=== PATIENT | female | born 1940 | race Caucasian/White ===

== ENCOUNTER 2016-06-03 17:27 | Inpatient (IN) ==
[2016-06-03 20:01] LABS: Basophils % 0.3 %; Hematocrit 43.5 % (35.3-44.9); Hemoglobin 14.8 g/dL (11.5-15.4); Immature Granulocytes % 0.5 % (0-4); Lymphocytes # 0.6 K/mcL (0.6-4.6); Lymphocytes % 8.5 %; Mean Corpuscular Hemoglobin 28.4 pg (28.0-33.3); Mean Corpuscular Volume 83.5 fL (83.0-100.0); Mean Platelet Volume 10.7 fL (9.4-12.4); Monocytes # 0.1 K/mcL (0.0-1.3); Monocytes % 1.3 %; Neutrophils # 6.7 K/mcL (1.6-8.9); Platelet Count 325 K/mcL (140-400); Red Blood Count 5.21 M/mcL (3.82-4.97); Red Cell Distribution Width 13.1 % (11.5-14.5); Segmented Neutrophils % 89.4 %
[2016-06-03 20:08] LABS: INR 1.2; Prothrombin Time 12.7 Seconds (9.4-12.1)
[2016-06-03 20:11] LABS: Activated Partial Thrombo Time 25.9 Seconds (26.0-36.0)
[2016-06-03 20:13] LABS: BUN/Creatinine Ratio 18 (6-26); Blood Urea Nitrogen 15 mg/dL (7-20); Calcium 9.6 mg/dL (8.6-10.8); Carbon Dioxide 24 mEq/L (19-29); Chloride 106 mEq/L (98-109); Glucose 154 mg/dL (70-99); Osmolality,Calculated 300 (280-300); Potassium 3.4 mEq/L (3.5-4.5); Sodium 143 mEq/L (136-145); eGFR For African Americans > 60 (> 60); eGFR For Non-African Americans > 60 (> 60)
--- NOTE | 2016-06-03 20:33 | Emergency Department Note ---
Disposition Clinical Impression: Chest pain, rule out acute myocardial infarction Disposition: Admitted As Inpatient Condition: Good Time of Disposition: 21:07 Chest Pain HPI - General Chief Complaint: ED Chest Pain Stated Complaint: chest pain Time Seen by Provider: 06/03/16 19:54 Source: patient Limitations: no limitations Vital Signs Reviewed: Yes Nursing Notes Reviewed: Yes - History of Present Illness HPI Narrative: 75-year-old female brought in by family for chest pain worsening over the past few days. Patient states that she has had intermittent pressure in the left chest which radiates into the left arm and is associated with nausea. There is no associated diaphoresis or palpitations or shortness of breath. No history of cardiac disease in the past. Patient has cardiac risk factors of hypertension, hyperlipidemia and her age. Never had a stress test or other cardiac workup. Denies recent trauma. Severity scale (1-10): 8 - Related Data Home Medications Medication Instructions Recorded Confirmed Famotidine [Heartburn Prevention] 20 mg PO HS 11/04/15 06/03/16 Lisinopril [Zestril] 40 mg PO DAILY 11/04/15 06/03/16 Alendronate Sodium [Alendronate 70 mg PO QWEEK 06/03/16 06/03/16 Sodium] Amlodipine [Norvasc] 5 mg PO DAILY 06/03/16 06/03/16 Fenofibrate Nanocrystallized 145 mg PO DAILY 06/03/16 06/03/16 [Fenofibrate] Lansoprazole [Lansoprazole] 30 mg PO BID 06/03/16 06/03/16 Meloxicam [Mobic] 7.5 mg PO DAILY 06/03/16 06/03/16 OxyCODONE/APAP 5/325 [Percocet 1 each PO BID PRN 06/03/16 06/03/16 5/325] Quetiapine Fumarate [Seroquel] 25 mg PO HS 06/03/16 06/03/16 Sucralfate [Sucralfate] 1 gm PO BID 06/03/16 06/03/16 Tizanidine HCl [Tizanidine HCl] 2 mg PO HS PRN 06/03/16 06/03/16 Allergies Allergy/AdvReac Type Severity Reaction Status Date / Time No Known Allergies Allergy Verified 11/04/15 18:32 All systems ED: reviewed and negative except as stated. Constitutional: Reports: weakness, weight change. Denies: fever, chills Cardiovascular: Reports: chest pain. Denies: palpitations, dyspnea on exertion , syncope Respiratory: Denies: cough, dyspnea, wheezes Gastrointestinal: Reports: nausea, vomiting. Denies: abdominal pain, diarrhea Genitourinary: Denies: urgency, dysuria, frequency Musculoskeletal: Denies: back pain, neck pain Integumentary: Denies: rash Neurological: Denies: headache, weakness, numbness, paresthesias Chest Pain PMH - Past Medical History Medical history: Reports: hyperlipidemia, hypertension, other Psychiatric history: Reports: no psych history - Social History Smoking Status: Never smoker Alcohol use: Reports: none Drug use: Reports: none Physical Exam General: Alert and in no acute distress Skin: Warm, dry, intact Head: Normocephalic and atraumatic Neck: Supple, trachea midline and no tenderness Cardiovascular: RRR, no murmur, normal perfusion Respiratory: CTAB, no wheezing, cough, or respiratory distress Musculoskeletal: Normal strength, no tenderness, swelling or deformity GI: Soft, nontender, nondistended. Bowel sounds present Neuro: A&O to person, place, time and situation. No focal deficits noted on exam. 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 - General Limitations: no limitations General appearance: alert Course Vital Signs Temperature 99.1 F 06/03/16 18:07 Pulse Rate 102 06/03/16 18:07 Respiratory Rate 18 06/03/16 18:07 Blood Pressure 173/79 06/03/16 18:07 O2 Sat by Pulse Oximetry 98 06/03/16 18:07 Temperature 97.8 F 06/03/16 22:40 Pulse Rate 69 06/03/16 22:40 Respiratory Rate 17 06/03/16 22:40 Blood Pressure 171/72 06/03/16 22:40 O2 Sat by Pulse Oximetry 96 06/03/16 22:40 Oxygen Delivery Oxygen Delivery Room Air Chest Pain - Medical Records Medical records reviewed: Yes I reviewed the patient's medical records. - Lab Data Lab results reviewed: Yes I reviewed the patient's lab results. Result diagrams: 06/03/16 19:48 06/03/16 19:48 Lab Results 06/03/16 06/03/16 06/03/16 Range/Units 19:48 19:48 19:48 WBC 7.4 (4.3-11.1) K/mcL RBC 5.21 H (3.82-4.97) M/mcL Hgb 14.8 (11.5-15.4) g/dL Hct 43.5 (35.3-44.9) % MCV 83.5 (83.0-100.0) fL MCH 28.4 (28.0-33.3) pg MCHC 34.0 (31.6-35.5) g/dL RDW 13.1 (11.5-14.5) % Plt Count 325 (140-400) K/mcL MPV 10.7 (9.4-12.4) fL Immature Gran % 0.5 (0-4) % Seg Neutrophils % 89.4 % Lymphocytes % 8.5 % Monocytes % 1.3 % Eosinophils % 0.0 % Basophils % 0.3 % Neutrophils # 6.7 (1.6-8.9) K/mcL Lymphocytes # 0.6 (0.6-4.6) K/mcL Monocytes # 0.1 (0.0-1.3) K/mcL Eosinophils # 0.0 (0.0-0.6) K/mcL Basophils # 0.0 (0.0-0.2) K/mcL PT 12.7 H (9.4-12.1) Seconds INR 1.2 APTT 25.9 L (26.0-36.0) Seconds Sodium 143 (136-145) mEq/L Potassium 3.4 L (3.5-4.5) mEq/L Chloride 106 (98-109) mEq/L Carbon Dioxide 24 (19-29) mEq/L BUN 15 (7-20) mg/dL Creatinine 0.82 (0.57-1.11) mg/dL Est GFR ( Amer) > 60 (> 60) Est GFR (Non-Af Amer) > 60 (> 60) BUN/Creatinine Ratio 18 (6-26) Glucose 154 H (70-99) mg/dL Calculated Osmolality 300 (280-300) Calcium 9.6 (8.6-10.8) mg/dL Troponin I (0-0.03) ng/mL TSH 0.455 (0.350-4.840) mcIU/mL 06/03/16 Range/Units 19:48 WBC (4.3-11.1) K/mcL RBC (3.82-4.97) M/mcL Hgb (11.5-15.4) g/dL Hct (35.3-44.9) % MCV (83.0-100.0) fL MCH (28.0-33.3) pg MCHC (31.6-35.5) g/dL RDW (11.5-14.5) % Plt Count (140-400) K/mcL MPV (9.4-12.4) fL Immature Gran % (0-4) % Seg Neutrophils % % Lymphocytes % % Monocytes % % Eosinophils % % Basophils % % Neutrophils # (1.6-8.9) K/mcL Lymphocytes # (0.6-4.6) K/mcL Monocytes # (0.0-1.3) K/mcL Eosinophils # (0.0-0.6) K/mcL Basophils # (0.0-0.2) K/mcL PT (9.4-12.1) Seconds INR APTT (26.0-36.0) Seconds Sodium (136-145) mEq/L Potassium (3.5-4.5) mEq/L Chloride (98-109) mEq/L Carbon Dioxide (19-29) mEq/L BUN (7-20) mg/dL Creatinine (0.57-1.11) mg/dL Est GFR ( Amer) (> 60) Est GFR (Non-Af Amer) (> 60) BUN/Creatinine Ratio (6-26) Glucose (70-99) mg/dL Calculated Osmolality (280-300) Calcium (8.6-10.8) mg/dL Troponin I 0.03 (0-0.03) ng/mL TSH (0.350-4.840) mcIU/mL - Radiology Data Radiology results reviewed: Yes I reviewed the patient's radiology results. - EKG Data EKG attestation: Yes I reviewed and interpreted this EKG. EKG results narrative: ECG - interpreted by ED physician. Rate 64, normal sinus rhythm, no STEMI, WI, QT intervals, and QRS within normal limits Heart Score - Score History: Moderately Suspicious EKG: Normal Age: Greater than 65 Risk Factors: 1-2 risk factors Troponin: Less than normal limit HEART Score Total: 4
[2016-06-03 20:36] LABS: Thyroid Stimulating Hormone 0.455 mcIU/mL (0.350-4.840)
[2016-06-03] MEDS ORDERED: Aspirin 81 MG TAB.CHEW PO ONE (21:06)
--- NOTE | 2016-06-04 00:14 | Internal Med History&Physical ---
<ChandraJavier - Last Filed: 06/04/16 01:23> Date of Encounter: 06/04/16 Time of Encounter: 00:11 Assessment and Plan (1) Chest pain Current visit: Yes Status: Acute Given presentation and history of GERD, etiology may be GI related but cannot fully rule out cardiac at this time Initial troponin of 0.03, will repeat x2 She does not need urgent evaluation with [facility] or inpatient stress test, but may benefit from scheduling it as an outpatient Patient does have risk factors such as HTN, HLD and family hx Will increase home GI prophylatic and anti-hypertensive medications Qualifiers: Qualified Code(s): R07.9 - Chest pain, unspecified (2) GERD (gastroesophageal reflux disease) Current visit: Yes Status: Chronic She does take Carafate, Lansoprazole, and Famotidine at home Will continue her Carafate and start on IV Protonix 40 mg BID Patient did state she had an EGD roughly a year ago that was normal Qualifiers: Qualified Code(s): K21.9 - Gastro-esophageal reflux disease without esophagitis (3) Hypertension Current visit: Yes Status: Chronic Blood pressures slightly elevated upon admission Will continue her home Lisinopril and increase Norvasc dose from 5 to 10 mg daily PRN Hydralazine IV for SBP > 180 for acute management Qualifiers: Qualified Code(s): I10 - Essential (primary) hypertension (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 Treadwell is a 75 year old female who presents to the emergency department with chest pain. She first noticed the pain last roughly an hour after eating a meal. She describes it as sharp and located directly in the middle of her chest over her sternum, worse with palpation. She has been feeling sick and states she had a "stomach bug" causing her to have nausea and vomiting over the past few days. She denied any blood in her vomit and had only 2 episodes of it, but states that she thought it may have been causing her pain. She also has been feeling somewhat short of breath and has a productive cough with yellow sputum. is at bedside and confirms that patient has been having more "respiratory symptoms" over the past year and he has noticed she oftens breathes fast and shallow. Patient denies any cardiac or pulmonary history and has never been worked up. She does have a history of reflux but is unsure if this feels similar to her usual episodes. Patient claims that despite her nausea and vomiting, she has been compliant with her medications. Currently at rest, she denies any chest pain, shortness of breath, palpitations , diaphoresis, nausea, fever, chills. Past Med Surg Social Fam HX - Past Medical History Medical history: hyperlipidemia, hypertension, other Psychiatric history: no psych history - Social History Smoking Status: Never smoker Smokeless Tobacco Status: No Alcohol use: none Drug use: none - Family History Sister Living Status: Still Living Hx Family Cancer: Yes (breast) Mother Hx Family Cancer: Yes Father Living Status: Hx Family Cardiac Disorders: Yes ([place]) Brother Hx Family Cardiac Disorders: Yes (4 brothers have from heart attacks) Internal Medicine - H&P: Meds Famotidine [Heartburn Prevention] 20 mg PO HS 11/04/15 [History] Lisinopril [Zestril] 40 mg PO DAILY 11/04/15 [History] Alendronate Sodium [Alendronate Sodium] 70 mg PO QWEEK 06/03/16 [History] Amlodipine [Norvasc] 5 mg PO DAILY 06/03/16 [History] Fenofibrate Nanocrystallized [Fenofibrate] 145 mg PO DAILY 06/03/16 [History] Lansoprazole [Lansoprazole] 30 mg PO BID 06/03/16 [History] Meloxicam [Mobic] 7.5 mg PO DAILY 06/03/16 [History] OxyCODONE/APAP 5/325 [Percocet 5/325] 1 each PO BID PRN 06/03/16 [History] Quetiapine Fumarate [Seroquel] 25 mg PO HS 06/03/16 [History] Sucralfate [Sucralfate] 1 gm PO BID 06/03/16 [History] Tizanidine HCl [Tizanidine HCl] 2 mg PO HS PRN 06/03/16 [History] Allergies No Known Allergies Allergy (Verified 11/04/15 18:32) All Systems PM: A 10-system review of systems was performed and is negative for pertinent findings except as documented above in the HPI. - Constitutional Constitutional: no chills, no fever(s), no night sweats - EENT Eyes: no change in vision, no discharge, no pain, no photophobia Ears: no ear discharge, no ear pain, no tinnitus Nose, mouth and throat: no dysphagia, no nasal discharge, no neck pain, no sore throat - Cardiovascular Cardiovascular ROS IM: chest pain, dyspnea, no diaphoresis, no lightheadedness, no palpitations, no syncope - Respiratory Respiratory: cough, excessive phlegm production, no dyspnea, no wheezing - Gastrointestinal Gastrointestinal: nausea, vomiting, no abdominal pain, no diarrhea, no hematemesis, no hematochezia, no melena - Genitourinary Genitourinary: no change in urinary stream, no dysuria, no flank pain, no hematuria - Musculoskeletal Musculoskeletal ROS IM: no numbness, no tingling - Integumentary Integumentary IM: no rash, no unusual bruising - Neurological Neurological ROS: no confusion, no convulsions, no focal weakness, no numbness, no tingling, no tremor(s) - Hematologic/Lymphatic Hematologic/Lymphatic: no easy bruising - Constitutional Vitals: Temp Pulse Resp BP Pulse Ox 97.8 F 69 17 171/72 96 06/03/16 22:40 06/03/16 22:40 06/03/16 22:40 06/03/16 22:40 06/03/16 22:40 General appearance: Present: cooperative, disheveled (does have history of Huntingtons), A&O X 3, pleasant, no acute distress, answers questions appropriately - Head Head exam: Present: atraumatic, normocephalic - Eye Eye exam: Present: PERRL, conjuntiva pink, sclera anicteric - Neck Neck exam general surgery: Present: supple, trachea midline. Absent: lymphadenopathy - Respiratory Respiratory exam: Present: chest wall tenderness (when palpating along sternum) , wheezes. Absent: accessory muscle use, rales, rhonchi - Cardiovascular Cardiovascular exam: Present: RRR, +S1, +S2. Absent: diastolic murmur, gallop, rubs, systolic murmur - GI/Abdominal GI/Abdominal exam: Present: normal bowel sounds, soft, no peritoneal signs. Absent: distended, guarding, tenderness - Extremities Exam Extremities exam: Present: warm, radial pulses palpable and symetrical. Absent : calf tenderness, cyanotic, pedal edema - Neurological Exam Neurological exam: Present: alert, oriented X3, no focal deficits. Absent: facial droop, speech deficit Additional comments: choreiform movements noted in all extremities - Skin Skin exam: Present: dry, intact Internal Med - H&P Results - Labs CBC & Chem 7: 06/03/16 19:48 06/03/16 19:48 <Nikko Donahue R - Last Filed: 06/04/16 05:06> Date of Encounter: 06/04/16 Internal Medicine - H&P: HPI History of present illness: Ms. Treadwell is a 75 year old female All Systems PM: A 10-system review of systems was performed and is negative for pertinent findings except as documented above in the HPI. - Constitutional Vitals: Temp Pulse Resp BP Pulse Ox 98.4 F 61 16 171/66 95 06/04/16 03:30 06/04/16 03:30 06/04/16 03:30 06/04/16 03:30 06/04/16 03:30 Internal Med - H&P Results - Labs CBC & Chem 7: 06/03/16 19:48 06/04/16 02:53 Labs: BMP 06/04/16 02:53 Sodium 141 Potassium 4.4 D Chloride 109 Carbon Dioxide 18 L BUN 14 Creatinine 0.79 Glucose 128 H Calcium 9.3 Cardiac Enzymes 06/04/16 Range/Units 02:53 Troponin I 0.03 (0-0.03) ng/mL - Attending Attestation I performed a history and physical examination of the patient and discussed his management with the Resident/Bilingual Middle School Teacher (Dr Chandra). I reviewed the residents note and agree with the documented findings and plan of care, with additions as below. 74-year-old female past medical history significant for Huntingtons disease, hypertension, hyperlipidemia, family h/o CAD and GERD presents with Lower sternal / epigastric pain. Intermittent, not associated with exertion. EKG sinus rhythm, no acute ST-T changes. CXR: No acute changes. O/E: Mild lower sternal tenderness. Lungs: CTA; cardiac: RRR. A/P: Lower sternal / epigastric pain: Possibly due to GERD versus cardiac. Initial troponins negative. Will treat with PPI, sucralfate. Pharmacological stress test. Lipid panel.
[2016-06-04] MEDS ORDERED: Naloxone 0.4 MG/ML INJ IVP PRN (01:05)
[2016-06-04] MEDS ORDERED: Ondansetron 4 MG/2 ML VIAL IVP PRN (01:05)
[2016-06-04] MEDS ORDERED: Acetaminophen 325 MG TABLET PO PRN (01:05)
[2016-06-04] MEDS ORDERED: *HR* OxyCODONE/APAP 5/325 TABLET PO PRN (01:07)
[2016-06-04] MEDS: Pantoprazole 40 MG VIAL IVP SCH ×2 (01:29→17:39)
[2016-06-04 03:51] LABS: BUN/Creatinine Ratio 18 (6-26); Blood Urea Nitrogen 14 mg/dL (7-20); Calcium 9.3 mg/dL (8.6-10.8); Carbon Dioxide 18 mEq/L (19-29); Chloride 109 mEq/L (98-109); Chol/HDL Ratio 4.7 (0-4.9); Cholesterol 173 mg/dL (< 200); Glucose 128 mg/dL (70-99); HDL Cholesterol 37 mg/dL (40-59); LDL Cholesterol,Calculated 115 mg/dL (0-99); Osmolality,Calculated 294 (280-300); Sodium 141 mEq/L (136-145); Triglycerides 107 mg/dL (< 150); eGFR For African Americans > 60 (> 60); eGFR For Non-African Americans > 60 (> 60)
[2016-06-04 04:09] LABS: Magnesium 2.3 mg/dL (1.6-2.6); Potassium 4.4 mEq/L (3.5-4.5)
[2016-06-04 04:10] LABS: Phosphorous 2.1 mg/dL (2.3-4.7)
[2016-06-04] MEDS: *HR* Heparin 5,000 UNIT/ML VIAL SQ SCH ×3 (06:13→17:48)
[2016-06-04] MEDS ORDERED: Regadenoson 0.4 MG/5 ML SYRINGE IVP ONE (06:18)
[2016-06-04] MEDS: Sucralfate 1 GM TABLET PO SCH ×2 (07:53→21:25)
[2016-06-04] MEDS: Lisinopril 20 MG TABLET PO SCH (07:53)
[2016-06-04] MEDS: Fenofibrate 54 MG TABLET PO SCH (07:54)
[2016-06-04] MEDS: amLODIPine 5 MG TABLET PO SCH (07:54)
--- NOTE | 2016-06-04 09:31 | Event Note ---
Date of Encounter: 06/04/16 Time of Encounter: 08:15 Patient seen and examined. On examination, patient had just returned from her stress test and was sitting upright in bed eating breakfast. Patient is stating she has a lengthy history of severe indigestion refractory to most medications. Her states that she has tried omeprazole, then famotidine , then lansoprazole, and Carafate. He states that these medications would work for approximately one month but then would stop. Patient stating she also has a recent history of H. pylori. In review of her chart, the only test that was performed [facility] was a modified barium swallow on which revealed trace/transient penetration of both thin and nectar consistency contrast without aspiration noted. She is followed outpatient by neurologist Dr. Alicea recently saw him on 03/06/16. Patient states that over the past several months that she has eaten smaller meals for dinner stating that her reflux become severe in the evening. She states that she eats several very small meals but states this does not seem to help her symptoms. Speech therapy brought on board. GI brought on board for possible EGD consideration at their discretion. Of note, patient was unable to get a stress test today due to her inability to stay still for the procedure. We will continue to trend her troponins although her physical examination and clinical picture more consistent with epigastric etiology. She did have a borderline elevated troponin at 0.04, will continue to trend. Suspicion low for acute coronary syndrome-we will recheck troponin at 12:30. Chest x-ray unremarkable. Patient denies shortness of breath. ITS Impressions Chest X-Ray 06/03/16 18:36 IMPRESSION: 1. No acute process. 2. Mildly enlarged cardiac silhouette. D/ / Hugo Cardoza MD / Hugo Cardoza MD Interpreting Provider: Hugo Cardoza MD
[2016-06-04 10:27] LABS: Bilirubin,Direct 0.5 mg/dL (0.0-0.5); Bilirubin,Indirect 0.5 mg/dL (0.0-1.2)
[2016-06-04 10:29] LABS: Albumin 3.6 g/dL (3.5-5.0); Albumin/Globulin Ratio 1.2 (1.1-2.2); Bilirubin,Direct 0.5 mg/dL (0.0-0.5); Bilirubin,Indirect 0.5 mg/dL (0.0-1.2); Total Protein 6.6 g/dL (6.0-8.3)
--- NOTE | 2016-06-04 12:21 | Gastroenterology Consult Note ---
<Luis Miguel Flores - Last Filed: 06/04/16 12:18> Date of Encounter: 06/04/16 Time of Encounter: 10:25 - Assessment and plan (1) Dysphagia Current Visit: Yes Status: Acute Assessment and plan: Plan for EGD tomorrow with possible dilation. Pt ate breakfast this AM. NPO at midnight. Qualifiers: Dysphagia type: unspecified Qualified Code(s): R13.10 - Dysphagia, unspecified (2) GERD (gastroesophageal reflux disease) Current Visit: Yes Status: Chronic Assessment and plan: Pt taking Carafate, lansoprazole, and famotidine at home. Continue PPI and Carafate. Limit NSAIDs. Plan for EGD tomorow to r/o esophagitis, gastritis, duodenitis, PUD, MW tear, or AVM. 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 Treadwell is a 75 year old female with PMHX of Pitts[place]'s chorea, HLD, HTN, and GERD who presented to the ED with chest pain, troponin 0.04 this a.m. Patient is taking Carafate, lansoprazole, and famotidine at home for her GERD. She reports a history of H. pylori "several years ago". She also reports dysphagia with solids, feeling like they get stuck in her throat. She reports over the past few months she has been eating smaller meals due to her reflux. She recently had a "stomach bug" which cause nausea and vomiting. No hematemesis noted. Currently she denies chest pain, shortness of breath palpitations, nausea, vomiting, fever, or chills. Procedures: EGD 03/27/[address] Hurt Colonoscopy 03/27/[address] Hurt NSAIDs: Meloxicam Anticoagulation: None Past Med Surg Social Fam HX - Past Medical History Medical history: hyperlipidemia, hypertension, other Psychiatric history: no psych history - Social History Smoking Status: Never smoker Smokeless Tobacco Status: No Alcohol use: none Drug use: none - Family History Sister Living Status: Still Living Hx Family Cancer: Yes (breast) Mother Hx Family Cancer: Yes Father Living Status: Hx Family Cardiac Disorders: Yes ([place]) Brother Hx Family Cardiac Disorders: Yes (4 brothers have from heart attacks) - Gastrointestinal Gastrointestinal: Present: as per HPI - Constitutional Constitutional: as per HPI - EENT Eyes: as per HPI Ears: Present: as per HPI Nose, mouth and throat: Present: as per HPI - Cardiovascular Cardiovascular ROS: Present: as per HPI - Respiratory Respiratory IM: Present: as per HPI - Genitourinary Genitourinary: Absent: change in color, Urinary frequency - Neurological ROS Neurological GI: Present: as per HPI - Hematologic/Lymphatic Hematologic/Lymphatic pediatric: Present: as per HPI - Musculoskeletal Musculoskeletal ROS GI: Present: as per HPI - Integumentary Integumentary GI: Present: as per HPI - Psychiatric ROS Psychiatric GI: Present: as per HPI - Endocrine Endocrine IM: Present: as per HPI - Constitutional Vitals: Temp Pulse Resp BP Pulse Ox 99.5 F 79 18 166/66 91 L 06/04/16 11:44 06/04/16 11:44 06/04/16 11:44 06/04/16 11:44 06/04/16 11:44 General appearance: Present: cooperative, A&O X 3, no acute distress, answers questions appropriately Exam: Involuntary movements due to Pitts[place]'s - Head Head exam: Present: atraumatic, normocephalic - Eye Eye exam: Present: normal appearance, sclera anicteric - ENT ENT exam: Present: mucous membranes moist - Neck Neck exam general surgery: Present: normal inspection, trachea midline - Respiratory Respiratory exam: Present: CTAB. Absent: rales, rhonchi - Cardiovascular Cardiovascular exam: Present: RRR, +S1, +S2 - GI/Abdominal GI/Abdominal exam: Present: normal bowel sounds, soft, tenderness (midepigastric ), no peritoneal signs. Absent: distended, firm, guarding - Rectal Rectal exam: Present: deferred - Extremities Exam Extremities exam: Present: warm - Neurological Exam Neurological exam: Present: no focal deficits - Psychiatric Psychiatric exam: Present: normal affect, normal mood - Skin Skin exam: Present: dry, intact, normal color, warm Results - Labs CBC & Chem 7: 06/03/16 19:48 06/04/16 02:53 Labs: Last Result Calcium 9.3 mg/dL (8.6-10.8) 06/04/16 02:53 Troponin I 0.04 ng/mL (0-0.03) H* 06/04/16 08:23 Triglycerides 107 mg/dL (< 150) 06/04/16 02:53 Entire Visit Hgb 14.8 g/dL (11.5-15.4) 06/03/16 19:48 Hct 43.5 % (35.3-44.9) 06/03/16 19:48 PT 12.7 Seconds (9.4-12.1) H 06/03/16 19:48 Total Bilirubin 1.0 mg/dL (0.2-1.2) 06/04/16 10:03 AST 27 Units/L (5-34) 06/04/16 10:03 ALT 28 Units/L (0-55) 06/04/16 10:03 Lipase 38 Units/L (8-78) 06/04/16 10:03 - ABG ABG results: PT/INR, D-dimer PT 12.7 Seconds (9.4-12.1) H 06/03/16 19:48 Consult Discharge Plan - Plan Referrals: Kirit Castanon, [facility] [Primary Care Provider] - <Kiran Charles - Last Filed: 06/04/16 18:14> Date of Encounter: 06/04/16 Time of Encounter: 18:00 - Time Spent With Patient Total time spent is greater than 50% in coordination of care (as documented) at patient's floor/unit and/or counseling patient: GI History of Present Illness - Data of Consult Requesting Physician: Tita Kendall - Consult Narrative History of present illness: Ms. Treadwell is a 75 year old female - Constitutional Vitals: Temp Pulse Resp BP Pulse Ox 98.4 F 71 18 145/66 92 L 06/04/16 15:25 06/04/16 15:25 06/04/16 15:25 06/04/16 15:25 06/04/16 15:25 Results - Labs CBC & Chem 7: 06/03/16 19:48 06/04/16 02:53 Labs: Last Result Calcium 9.3 mg/dL (8.6-10.8) 06/04/16 02:53 Troponin I 0.04 ng/mL (0-0.03) H* 06/04/16 08:23 Triglycerides 107 mg/dL (< 150) 06/04/16 02:53 Entire Visit Hgb 14.8 g/dL (11.5-15.4) 06/03/16 19:48 Hct 43.5 % (35.3-44.9) 06/03/16 19:48 PT 12.7 Seconds (9.4-12.1) H 06/03/16 19:48 Total Bilirubin 1.0 mg/dL (0.2-1.2) 06/04/16 10:03 AST 27 Units/L (5-34) 06/04/16 10:03 ALT 28 Units/L (0-55) 06/04/16 10:03 Lipase 38 Units/L (8-78) 06/04/16 10:03 - ABG ABG results: PT/INR, D-dimer PT 12.7 Seconds (9.4-12.1) H 06/03/16 19:48 - Attending Attestation I examined this patient and my medical decision-making was reviewed with the TRAVEL TRAILER COMPONENTS ASSEMBLER/PA/Advanced Practice Nurse/Resident Physician. I agree with the documented findings, disposition and treatment plan as described except to the extent set forth below.
--- NOTE | 2016-06-04 16:31 | Electrocardiograph Report ---
[address] [address] Test Date: 2016-06-03 Pat Name: Colette Treadwell Department: 102 Room: 3B Gender: F Legal Word Processor: : 1940 Requested By: Osvaldo Werner Order Number: [id number] Reading MD: Osvaldo Kaiser Measurements Intervals [place] Rate: 64 P: MT: 0 QRS: -2 QRSD: 89 T: -16 QT: 425 QTc: 435 Interpretive Statements SINUS RHYTHM BASELINE ARTIFACT Electronically Signed On 06-04-2016 16:30:05 EST by Osvaldo Kaiser
--- NOTE | 2016-06-04 16:41 | Electrocardiograph Report ---
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
--- NOTE | 2016-06-05 04:24 | Event Note ---
Date of Encounter: 06/05/16 Time of Encounter: 04:14 Was paged by nurse concerning patient's heart rate being in the 130-150's. They obtained an EKG which demonstrated AFib with rate in the 120's. She does not have any documented history of arrhythmias and is not on any rate control or blood thinners. I personally examined patient who was awake lying comfortably in bed. She did not complain of any chest pain, shortness of breath, nausea, diaphoresis, or lightheadedness. Heart was regular rate and rhythm and lungs are clear. Her blood pressure was within normal range. Since she was back in NSR with HR below 80, she does not need any medications for rate control at this point. However, prior to discharge she should be evaluated by primary team if she needs jail rate control or anticoagulation.
[2016-06-05 05:25] LABS: BUN/Creatinine Ratio 29 (6-26); Blood Urea Nitrogen 23 mg/dL (7-20); Calcium 9.1 mg/dL (8.6-10.8); Carbon Dioxide 18 mEq/L (19-29); Chloride 110 mEq/L (98-109); Glucose 112 mg/dL (70-99); Osmolality,Calculated 296 (280-300); Sodium 141 mEq/L (136-145); eGFR For African Americans > 60 (> 60); eGFR For Non-African Americans > 60 (> 60)
[2016-06-05 05:28] LABS: Potassium 3.5 mEq/L (3.5-4.5)
[2016-06-05] MEDS: Pantoprazole 40 MG VIAL IVP SCH (06:12)
[2016-06-05] MEDS: Fenofibrate 54 MG TABLET PO SCH (08:52)
[2016-06-05] MEDS: amLODIPine 5 MG TABLET PO SCH (08:52)
[2016-06-05] MEDS: Sucralfate 1 GM TABLET PO SCH (08:52)
[2016-06-05] MEDS: Lisinopril 20 MG TABLET PO SCH (08:52)
--- NOTE | 2016-06-05 12:19 | Electrocardiograph Report ---
[place] [address] Test Date: 2016-06-05 Pat Name: KELSEY ESTRELLA Department: 113 Room: 38 Gender: Female Eligibility Clerk: : 1940 Requested By: Tita Salas Order Number: [id number] Reading MD: Suzy Kaiser Measurements Intervals [place] Rate: 124 P: OR: 0 QRS: -15 QRSD: 84 T: 9 QT: 326 QTc: 400 Interpretive Statements ATRIAL FIBRILLATION WITH RAPID VENTRICULAR RESPONSE MODERATE VOLTAGE CRITERIA FOR LVH, CONSIDER NORMAL VARIANT MINIMAL ST DEPRESSION ABNORMAL RHYTHM ECG Electronically Signed On 06-05-2016 12:18:17 EST by Suzy Kaiser
--- NOTE | 2016-06-05 14:55 | Discharge Summary ---
Date of Encounter: 06/05/16 Time of Encounter: 12:30 - Discharge Diagnosis (1) New onset a-fib Status: Acute (2) Chest pain Status: Acute Qualifiers: Qualified Code(s): R07.9 - Chest pain, unspecified (3) DVT prophylaxis Status: Acute (4) Dysphagia Status: Acute Qualifiers: Dysphagia type: unspecified Qualified Code(s): R13.10 - Dysphagia, unspecified (5) Epigastric abdominal pain Status: Acute (6) GERD (gastroesophageal reflux disease) Status: Chronic Qualifiers: Esophagitis presence: esophagitis presence not specified Qualified Code(s) : K21.9 - Gastro-esophageal reflux disease without esophagitis (7) Jorge L chorea Status: Chronic (8) Hypertension Status: Chronic Qualifiers: Qualified Code(s): I10 - Essential (primary) hypertension - Discharge Medications Home Medications: Famotidine [Heartburn Prevention] 20 mg PO HS 11/04/15 [History] Lisinopril [Zestril] 40 mg PO DAILY 11/04/15 [History] Alendronate Sodium [Alendronate Sodium] 70 mg PO QWEEK 06/03/16 [History] Amlodipine [Norvasc] 5 mg PO DAILY 06/03/16 [History] Fenofibrate Nanocrystallized [Fenofibrate] 145 mg PO DAILY 06/03/16 [History] Lansoprazole [Lansoprazole] 30 mg PO BID 06/03/16 [History] Meloxicam [Mobic] 7.5 mg PO DAILY 06/03/16 [History] OxyCODONE/APAP 5/325 [Percocet 5/325] 1 each PO BID PRN 06/03/16 [History] Quetiapine Fumarate [Seroquel] 25 mg PO HS 06/03/16 [History] Sucralfate [Sucralfate] 1 gm PO BID 06/03/16 [History] Tizanidine HCl [Tizanidine HCl] 2 mg PO HS PRN 06/03/16 [History] Allergies/Adverse Reactions: Allergies No Known Allergies Allergy (Verified 11/04/15 18:32) Date of admission: 06/05/16 13:07 Primary care physician: Kirit Castanon CNP Consults: 06/05/16 14:30 Consult to Cardiology [CONS] Routine Consulting Provider: Cardiology Dorie Comment: Reason for Consult: new afib. afib RvR overnight. Also has periods of bradycardia so reluctant to initiate rate control. CHADSVASC 3. Please eval and advise, thanks Call Completed: Yes Discharging clinician: Tita Salas Anticipated date of discharge: 06/05/16 (if EGD unremarkable) - Patient Status Condition: Good - Discharge Instructions Follow Up With: Kirit Castanon, FINANCE BUSINESS MANAGER [Primary Care Provider] - 06/12/16 1:00 pm Hospital course: Ms. Treadwell is a 75 year old female - Time Spent with Patient Total time spent providing and/or coordinating discharge services: - Constitutional Vitals: Temp Pulse Resp BP Pulse Ox 97.9 F 54 16 171/66 96 06/05/16 11:03 06/05/16 11:03 06/05/16 11:03 06/05/16 11:03 06/05/16 11:03 General appearance: Present: cooperative, disheveled (does have history of [place]), A&O X 3, pleasant, no acute distress, answers questions appropriately
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
[2016-06-05] MEDS ORDERED: *HR* LORazepam 2 MG/ML VIAL IVP PRN (15:08)
[2016-06-05] MEDS ORDERED: tiZANidine 4 MG TABLET PO PRN (15:08)
--- NOTE | 2016-06-05 16:33 | Cardiology Consult Note ---
Date of Encounter: 06/05/16 Time of Encounter: 16:27 Assessment and Plan (1) New onset a-fib Current Visit: Yes Status: Acute Newly diagnosed afib. Reports being told she may have afib at out-pt provider appt. Currently NSR. Telemetry review shows minimum HR 50 bpm at 1048am. Maximum HR 170 bpm atrial fibrillation with RVR at 1451. Currently NSR with PAC and PVC, HR 75. Check TTE. CHADS VASc = 3. Indications for anticoagulation discussed with patient and family. Coumadin versus and NOACs discussed. Patient is agreeable to xarelto. Rx in to pharmacy. Start low dose metoprolol. She was instructed to hold if her heart rate was below 60 bpm. Okay to discharge from a cardiology standpoint once echocardiogram is completed. The patient is found to have significant valvular disease she will need to be switched to Coumadin therapy. Start Xarelto after EGD when cleared by sander setter. Recommend follow-up in the atrial fibrillation clinic/ [facility] clinic in 1-2 weeks. Appointment will be coordinated by [facility] [facility]. (2) Chest pain Current Visit: Yes Status: Acute Atypical chest pain. Muscle skeletal/ GI in nature. EKG showed no acute ST changes. Troponin 0.03, 0.04, 0.03. Mild troponin not diagnostic. Planning to undergo EGD today. Qualifiers: Chest pain type: unspecified Qualified Code(s): R07.9 - Chest pain, unspecified Discussion w patient/family: The assessment and plan as outlined above was discussed with the patient and/or family members who expressed understanding and agreement. All questions were answered. Thank you for involving us in the care of your patient. Please call with any questions. History of Present Illness Consult date: 06/05/16 Requesting physician: Tita Salas Consult reason: atrial fibrillation Chief complaint: chest pain History of present illness: Ms. Treadwell is a 75 year old female with a history of hypertension and Ralph Chorea who presents with midsternal chest pain starting last . She c/o nausea, vomiting, and fatigue. Also c/o cough. She felt like she had the flu. Afterwards she developed a constant ache in her mid-sternum that was non radiating. Pain is reproducible. Pain increased after eating. She is planning to undergo and EGD today. She was noted to develop atrial fibrillation with RVR. reports her being diagnosed with afib two weeks ago at an out-pt appointment. She denies palpitations. She converted back to NSR on her own. Past Med Surg Social Fam HX - Past Medical History Medical history: hyperlipidemia, hypertension, other Psychiatric history: no psych history - Social History Smoking Status: Never smoker Smokeless Tobacco Status: No Alcohol use: none Drug use: none - Family History Sister Living Status: Still Living Hx Family Cancer: Yes (breast) Mother Hx Family Cancer: Yes Father Living Status: Hx Family Cardiac Disorders: Yes ([place]) Brother Hx Family Cardiac Disorders: Yes (4 brothers have from heart attacks) Medications and Allergies Famotidine [Heartburn Prevention] 20 mg PO HS 11/04/15 [History] Lisinopril [Zestril] 40 mg PO DAILY 11/04/15 [History] Alendronate Sodium [Alendronate Sodium] 70 mg PO QWEEK 06/03/16 [History] Amlodipine [Norvasc] 5 mg PO DAILY 06/03/16 [History] Fenofibrate Nanocrystallized [Fenofibrate] 145 mg PO DAILY 06/03/16 [History] Lansoprazole [Lansoprazole] 30 mg PO BID 06/03/16 [History] Meloxicam [Mobic] 7.5 mg PO DAILY 06/03/16 [History] OxyCODONE/APAP 5/325 [Percocet 5/325] 1 each PO BID PRN 06/03/16 [History] Quetiapine Fumarate [Seroquel] 25 mg PO HS 06/03/16 [History] Sucralfate [Sucralfate] 1 gm PO BID 06/03/16 [History] Tizanidine HCl [Tizanidine HCl] 2 mg PO HS PRN 06/03/16 [History] Allergies No Known Allergies Allergy (Verified 11/04/15 18:32) All Systems Review: A 10-system review of systems was performed and is negative for pertinent findings except as documented above in the HPI. Physical Examination General: Conversant, No Apparent Distress HEENT: Atraumatic, Normocephaly, Mucus Membranes Moist Neck: No JVD, Normal carotid pulses Cardiac: Reg Rate and Rhythm, Normal S1 and S2, No Murmur Lungs: Normal Breath Sounds, No Wheeze, Rales, Rhonchi Neuro: Alert and responsive, No focal deficits noted, Other (tremors noted. ) Abdomen: Soft, Non-Tender Skin: No rashes noted on visualized skin Musculoskeletal: Other (reproducible chest wall pain) Extremities: No Clubbing, No Cyanosis, No Edema, Normal Pulses Results 06/03/16 19:48 06/05/16 03:55 Chest X-Ray 06/03/16 18:36 IMPRESSION: 1. No acute process. 2. Mildly enlarged cardiac silhouette. D/ / Hugo Cardoza MD / Hugo Cardoza MD Interpreting Provider: Hugo Cardoza MD Vital Signs Temp Pulse Resp BP Pulse Ox 06/05/16 11:03 97.9 F 54 16 171/66 96 06/05/16 08:00 93 L 06/05/16 07:35 98.6 F 59 16 158/83 93 L 06/05/16 04:28 97.3 F L 72 12 135/74 94 L 06/04/16 23:19 97.8 F 55 16 158/70 93 L 06/04/16 20:34 97.9 F 95 16 147/65 95 Intake and Output 06/05/16 06/05/16 06/05/16 07:59 15:59 23:59 Intake Total 600 / 600 Balance 600 / 600 Intake: Oral 600 / 600 Other: Weight 74.571 kg Patient Weight 06/05/16 23:59 Weight 74.571 kg - Imaging and Cardiology Echo: pending Consult Discharge Plan - Plan Referrals: Kirit Castanon, FELT WASHING MACHINE TENDER [Primary Care Provider] - 06/12/16 1:00 pm
[2016-06-05] MEDS ORDERED: *HR* FentaNYL (PF) 100 MCG/2 ML VIAL ONE (18:08)
[2016-06-05] MEDS ORDERED: *HR* Midazolam HCl 5 MG/5 ML VIAL IVP ONE (18:08)
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
[2016-06-05] MEDS ORDERED: 0.9 % Sodium Chloride 1,000 ML IVC SCH (18:15)
[2016-06-05] MEDS ORDERED: Simethicone 40 MG/0.6 ML MLS IR ONE (18:18)
[2016-06-05] MEDS ORDERED: Tetracaine/Benzocaine/Butamben 200MG/SPRAY (100SPY/BOT) MM ONE (18:18)
[2016-06-05] MEDS: *HR* FentaNYL (PF) 100 MCG/2 ML VIAL IVP PRN ×2 (18:20→18:22)
[2016-06-05] MEDS: *HR* Midazolam HCl 5 MG/5 ML VIAL IVP PRN ×2 (18:20→18:23)
--- NOTE | 2016-06-05 19:15 | ECHO - Doppler Report ---
Echocardiogram Name: Colette Treadwell Date of Study: 06/05/2016 Date: 1940 Ht: 60.0 in Medical Record#: [id number] Age: 75 Wt: 164.0 lb Gender: Female BSA: 1.72 Order #: [id number] Location: [facility] Room #: 3B Reading Physician: Luis Miguel Cuevas MD, [facility] Application Defense Manager: Radha Grider RDCS Ordering Physician: Tita Salas CNP Primary Physician: Kirit Castanon CNP Indications: AFIB, Bradycardia, SSS Impressions: Normal left ventricular systolic function, LVEF 65%. Mild-moderate concentric left ventricular hypertrophy. Mild left ventricular diastolic dysfunction. Normal right ventricular size and function. Mildly dilated left atrium. Mild aortic regurgitation. No evidence of pulmonary hypertension. Left Ventricular Wall Motion: Rest Echo Findings All wall segments showed normal motion. Findings: Study Quality * Technically adequate exam. ECG Findings * Sinus bradycardia. Left Ventricle * Normal left ventricular systolic function, LVEF 65%. * Normal LV chamber size. * Mild-moderate concentric left ventricular hypertrophy. * Mild left ventricular diastolic dysfunction. Right Ventricle * Normal right ventricular size and function. Left Atrium * Mildly dilated left atrium. Right Atrium * Normal right atrial size. Aorta * Normally sized aortic root. Pericardium * There is no pericardial effusion present. IVC * Normal IVC dimensions and inspiratory collapse. Aortic Valve * Trileaflet aortic valve. * Mildly sclerotic aortic valve leaflets. * No aortic stenosis. * Mild aortic regurgitation. Mitral Valve * Normal mitral valve structure. * No mitral stenosis. * Trace mitral regurgitation. Tricuspid Valve * Tricuspid valve not well visualized. * No tricuspid stenosis. * Trace tricuspid regurgitation. * No evidence of pulmonary hypertension. Pulmonic Valve * Pulmonic valve not well visualized. * No pulmonic stenosis. * No pulmonic regurgitation. History Hypertension Hypercholesteremia Family History of CAD Measurements: BP: 171/ 66 2D Normal Values RVIDd: 2.85 cm IVSd: 1.38 cm 0.6 - 1.0 cm LVIDd: 4.65 cm 3.7 - 5.6 cm LVPWd: 1.33 cm 0.6 - 1.1 cm LVIDs: 2.34 cm 1.5 - 3.6 cm AO: 3.00 cm < 4.0 cm %FS: 49.70 cm >25 % LA volume: 60 Mitral Valve Peak E:.66 m/sec Peak A:.78 m/sec E/A Ratio:0.8 Aortic Valve AI pressure Half-time: 681.00 msec Tricuspid Valve TV Regurg Peak Grad: 27.00mmHg TV Regurg Peak Donis: 2.61m/sec Updated by Luis Miguel Cuevas MD, [facility] on 06/05/2016 7:05:44 PM electronically signed on 06/05/2016 7:10:29 PM with status of Final Wall Motion Lind: 1=Normal, 2=Hypokinesis, 3=Akinesis, 4=Dyskinesis, 5=Aneurysmal, 6=Hyperkinetic, X=Not Visualized (Blank)=Missing
[2016-06-05 19:50] VITALS: BP 158/69
== END 2016-06-05 19:42 | disposition home or self-care (01) | DRG 392 ==
LOC: 3BNU 17:27 → EMEROO 17:27 → 3BNU 21:55
PROVIDERS: ADMIT Internal Medicine; ATTEND Nurse Practitioner Family
PROC: ENDOORB (2016-06-05 13:00)

== ENCOUNTER 2019-05-18 17:23 | Inpatient (IN) ==
[2019-05-18] MEDS ORDERED: Isovue-370 500 ML BOTTLE IVP ONE (19:12)
[2019-05-18 19:14] LABS: Basophils % 0.5 %; Eosinophils # 0.1 K/mcL (0.0-0.6); Hematocrit 37.3 % (35.3-44.9); Hemoglobin 11.7 g/dL (11.5-15.4); Immature Granulocytes % 0.6 % (0-4); Lymphocytes # 1.1 K/mcL (0.6-4.6); Lymphocytes % 16.5 %; Mean Corpuscular HGB Conc 31.4 g/dL (31.6-35.5); Mean Corpuscular Hemoglobin 24.7 pg (28.0-33.3); Mean Corpuscular Volume 78.9 fL (83.0-100.0); Mean Platelet Volume 10.1 fL (9.4-12.4); Monocytes # 0.7 K/mcL (0.0-1.3); Monocytes % 10.8 %; Neutrophils # 4.6 K/mcL (1.6-8.9); Platelet Count 330 K/mcL (140-400); Red Blood Count 4.73 M/mcL (3.82-4.97); Red Cell Distribution Width 19.5 % (11.5-14.5); Segmented Neutrophils % 69.6 %; White Blood Count 6.6 K/mcL (4.3-11.1)
[2019-05-18 19:25] LABS: BUN/Creatinine Ratio 22 (6-26); Blood Urea Nitrogen 14 mg/dL (8-23); Calcium 8.7 mg/dL (8.6-10.3); Carbon Dioxide 30 mEq/L (23-29); Chloride 100 mEq/L (98-107); Glucose 105 mg/dL (70-105); Osmolality,Calculated 295 (280-300); Sodium 142 mEq/L (136-145); Troponin I 0.07 ng/mL (< 0.04); eGFR For African Americans > 60 (> 60); eGFR For Non-African Americans > 60 (> 60)
[2019-05-18] MEDS ORDERED: Aspirin 81 MG TAB.CHEW PO ONE (19:29)
[2019-05-18] MEDS ORDERED: Naloxone 0.4 MG/ML INJ IVP PRN (21:32)
[2019-05-18] MEDS ORDERED: Ondansetron 4 MG/2 ML VIAL IVP PRN (21:32)
[2019-05-18] MEDS ORDERED: Furosemide 40 MG/4 ML VIAL IVP ONE (22:22)
[2019-05-18 22:35] LABS: Digoxin 0.9 ng/mL (0.8-2.0)
[2019-05-18] MEDS ORDERED: NON-FORMULARY MEDICATION 1 EACH EACH (Alendronate Sodium 70 MG) PO SCH (23:45)
[2019-05-18] MEDS ORDERED: FLUoxetine HCl Oral Soln 20 MG/5 ML UDC PO PRN (23:59)
[2019-05-19] MEDS: *HR* Rivaroxaban 10 MG TABLET PO SCH ×2 (00:40→16:47)
[2019-05-19 01:36] LABS: Basophils % 0.3 %; Eosinophils # 0.2 K/mcL (0.0-0.6); Eosinophils % 3.1 %; Hematocrit 35.5 % (35.3-44.9); Hemoglobin 10.6 g/dL (11.5-15.4); Immature Granulocytes % 0.5 % (0-4); Lymphocytes % 16.1 %; Mean Corpuscular HGB Conc 29.9 g/dL (31.6-35.5); Mean Corpuscular Hemoglobin 24.4 pg (28.0-33.3); Mean Corpuscular Volume 81.8 fL (83.0-100.0); Mean Platelet Volume 10.4 fL (9.4-12.4); Monocytes # 0.7 K/mcL (0.0-1.3); Monocytes % 11.1 %; Neutrophils # 4.2 K/mcL (1.6-8.9); Platelet Count 298 K/mcL (140-400); Red Blood Count 4.34 M/mcL (3.82-4.97); Red Cell Distribution Width 19.8 % (11.5-14.5); Segmented Neutrophils % 68.9 %; White Blood Count 6.1 K/mcL (4.3-11.1)
[2019-05-19 01:58] LABS: % Iron Saturation 10 % (15-50); Alanine Aminotransferase 8 Units/L (7-52); Albumin 3.1 g/dL (3.5-5.7); Albumin/Globulin Ratio 1.2 (1.1-2.2); Alkaline Phosphatase 64 Units/L (34-104); Aspartate Amino Transferase 13 Units/L (13-39); BUN/Creatinine Ratio 21 (6-26); Bilirubin,Total 1.1 mg/dL (0.3-1.0); Blood Urea Nitrogen 15 mg/dL (8-23); Calcium 8.6 mg/dL (8.6-10.3); Carbon Dioxide 30 mEq/L (23-29); Chloride 101 mEq/L (98-107); Chol/HDL Ratio 5.8 (0-4.9); Cholesterol 127 mg/dL (< 200); Globulin 2.6 g/dL (2.4-3.5); Glucose 146 mg/dL (70-105); HDL Cholesterol 22 mg/dL (40-59); Iron 39 mcg/dL (50-170); LDL Cholesterol,Calculated 71 mg/dL (0-99); Magnesium 1.8 mg/dL (1.6-2.6); Osmolality,Calculated 295 (280-300); Phosphorous 2.6 mg/dL (2.7-4.5); Potassium 2.7 mEq/L (3.5-5.1); Sodium 141 mEq/L (136-145); Total Protein 5.7 g/dL (6.4-8.9); Transferrin 281 mg/dL (203-362); Triglycerides 170 mg/dL (< 150); eGFR For African Americans > 60 (> 60); eGFR For Non-African Americans > 60 (> 60)
[2019-05-19 02:23] LABS: Folate 8.9 ng/mL (3.0-16.0)
[2019-05-19] MEDS: Fenofibrate 54 MG TABLET PO SCH (08:24)
[2019-05-19] MEDS: Aspirin Enteric Coated 81 MG Tablet PO SCH (08:25)
[2019-05-19] MEDS: amLODIPine 5 MG TABLET PO SCH (08:25)
[2019-05-19] MEDS: levoFLOXacin 750 MG/150 ML 750 MG/150 ML BAG IVPB SCH (08:26)
[2019-05-19] MEDS ORDERED: FLUoxetine HCl Oral Soln 20 MG/5 ML UDC PO SCH (09:00)
[2019-05-19] MEDS: Lisinopril 20 MG TABLET PO SCH (09:13)
[2019-05-19] MEDS: *HR* Digoxin 0.125 MG TABLET PO SCH (09:13)
[2019-05-19 09:17] LABS: BUN/Creatinine Ratio 18 (6-26); Blood Urea Nitrogen 12 mg/dL (8-23); Calcium 8.7 mg/dL (8.6-10.3); Carbon Dioxide 29 mEq/L (23-29); Chloride 104 mEq/L (98-107); Glucose 149 mg/dL (70-105); Osmolality,Calculated 293 (280-300); Potassium 3.3 mEq/L (3.5-5.1); Sodium 140 mEq/L (136-145); eGFR For African Americans > 60 (> 60); eGFR For Non-African Americans > 60 (> 60)
[2019-05-19 09:22] LABS: Troponin I 0.05 ng/mL (< 0.04)
[2019-05-19 09:45] LABS: Ferritin 33 ng/mL (10-120)
[2019-05-19] MEDS: FLUoxetine HCl 10 MG CAPSULE PO SCH ×2 (09:59→23:01)
[2019-05-19] MEDS: Furosemide 40 MG/4 ML VIAL IVP SCH ×2 (12:22→22:59)
[2019-05-19 22:56] LABS: ABG Base Excess 4 mEq/L (-2 to 3); ABG HCO3 28 mEq/L (21-27); ABG Oxygen Saturation 91 % (95-98); ABG PCO2 40 mmHg (35-45); ABG PH 7.45 pH Units (7.32-7.45); ABG PO2 57 mmHg (85-104); ABG TCO2 29 mEq/L (20-26)
[2019-05-19] MEDS ORDERED: *HR* LORazepam 2 MG/ML VIAL IVP ONE (23:14)
[2019-05-20 00:24] LABS: Adenovirus Not Detected (Not Detect); Bordetella Pertussis Not Detected (Not Detect); Chlamydophila pneumoniae Not Detected (Not Detect); Coronavirus 229E Not Detected (Not Detect); Coronavirus HKU1 Not Detected (Not Detect); Coronavirus NL63 Not Detected (Not Detect); Coronavirus OC43 Not Detected (Not Detect); Human Metapneumovirus Not Detected (Not Detect); Human Rhinovirus/Enterovirus Not Detected (Not Detect); Influenza A Subtype 2009 H1 Not Detected (Not Detect); Influenza B Not Detected (Not Detect); Mycoplasma pneumoniae Not Detected (Not Detect); Parainfluenza Virus 1 Not Detected (Not Detect); Parainfluenza Virus 2 Not Detected (Not Detect); Parainfluenza Virus 3 Not Detected (Not Detect); Parainfluenza Virus 4 Not Detected (Not Detect); Respiratory Syncytial Virus Not Detected (Not Detect)
[2019-05-20 03:51] LABS: Basophils % 0.3 %; Eosinophils # 0.1 K/mcL (0.0-0.6); Eosinophils % 0.7 %; Hematocrit 35.3 % (35.3-44.9); Hemoglobin 10.4 g/dL (11.5-15.4); Immature Granulocytes % 0.5 % (0-4); Lymphocytes # 0.9 K/mcL (0.6-4.6); Lymphocytes % 11.8 %; Mean Corpuscular HGB Conc 29.5 g/dL (31.6-35.5); Mean Corpuscular Hemoglobin 24.1 pg (28.0-33.3); Mean Corpuscular Volume 81.9 fL (83.0-100.0); Mean Platelet Volume 10.1 fL (9.4-12.4); Monocytes # 0.6 K/mcL (0.0-1.3); Monocytes % 8.6 %; Neutrophils # 5.8 K/mcL (1.6-8.9); Platelet Count 312 K/mcL (140-400); Red Blood Count 4.31 M/mcL (3.82-4.97); Red Cell Distribution Width 20.2 % (11.5-14.5); Segmented Neutrophils % 78.1 %; White Blood Count 7.5 K/mcL (4.3-11.1)
[2019-05-20 03:52] LABS: BUN/Creatinine Ratio 14 (6-26); Blood Urea Nitrogen 9 mg/dL (8-23); Calcium 8.4 mg/dL (8.6-10.3); Carbon Dioxide 28 mEq/L (23-29); Chloride 104 mEq/L (98-107); Glucose 104 mg/dL (70-105); Magnesium 1.6 mg/dL (1.6-2.6); Osmolality,Calculated 289 (280-300); Phosphorous 2.2 mg/dL (2.7-4.5); Potassium 3.4 mEq/L (3.5-5.1); Sodium 140 mEq/L (136-145); eGFR For African Americans > 60 (> 60); eGFR For Non-African Americans > 60 (> 60)
[2019-05-20] MEDS ORDERED: FENOFIBRATE NANOCRYSTALLIZED 145 MG PO SCH (09:00)
[2019-05-20] MEDS ORDERED: *HR* Amiodarone 200 MG TABLET PO SCH (09:00)
[2019-05-20] MEDS: levoFLOXacin 750 MG/150 ML 750 MG/150 ML BAG IVPB SCH (09:12)
[2019-05-20] MEDS: amLODIPine 5 MG TABLET PO SCH (09:13)
[2019-05-20] MEDS: FLUoxetine HCl 10 MG CAPSULE PO SCH ×2 (09:13→21:57)
[2019-05-20] MEDS: Furosemide 40 MG/4 ML VIAL IVP SCH ×2 (09:13→21:57)
[2019-05-20] MEDS: Fenofibrate 54 MG TABLET PO SCH (09:13)
[2019-05-20] MEDS: Aspirin Enteric Coated 81 MG Tablet PO SCH (09:13)
[2019-05-20] MEDS: Potassium Chloride Elixir 20 MEQ/15 ML UDC PO SCH ×2 (09:13→21:57)
[2019-05-20] MEDS: *HR* Digoxin 0.125 MG TABLET PO SCH (09:14)
[2019-05-20] MEDS: Lisinopril 20 MG TABLET PO SCH (09:14)
[2019-05-20] MEDS: Piperacillin/Tazobactam 3.375 GM in 0.9 % Sodium Chloride Mini Bag 100 ML IVPB SCH ×2 (11:09→16:29)
[2019-05-20] MEDS: *HR* Rivaroxaban 10 MG TABLET PO SCH (16:28)
[2019-05-20] MEDS ORDERED: *HR* LORazepam 2 MG/ML VIAL IVP ONE (23:13)
[2019-05-21] MEDS: Piperacillin/Tazobactam 3.375 GM in 0.9 % Sodium Chloride Mini Bag 100 ML IVPB SCH ×3 (02:00→17:45)
[2019-05-21 02:46] LABS: BUN/Creatinine Ratio 16 (6-26); Blood Urea Nitrogen 14 mg/dL (8-23); Calcium 8.5 mg/dL (8.6-10.3); Carbon Dioxide 27 mEq/L (23-29); Chloride 105 mEq/L (98-107); Glucose 116 mg/dL (70-105); Magnesium 1.7 mg/dL (1.6-2.6); Osmolality,Calculated 291 (280-300); Phosphorous 2.2 mg/dL (2.7-4.5); Potassium 4.2 mEq/L (3.5-5.1); Sodium 140 mEq/L (136-145); eGFR For African Americans > 60 (> 60); eGFR For Non-African Americans > 60 (> 60)
[2019-05-21 02:56] LABS: Basophils % 0.4 %; Eosinophils # 0.3 K/mcL (0.0-0.6); Eosinophils % 3.6 %; Hematocrit 36.3 % (35.3-44.9); Hemoglobin 10.7 g/dL (11.5-15.4); Immature Granulocytes % 0.8 % (0-4); Lymphocytes % 12.7 %; Mean Corpuscular HGB Conc 29.5 g/dL (31.6-35.5); Mean Corpuscular Hemoglobin 24.6 pg (28.0-33.3); Mean Corpuscular Volume 83.4 fL (83.0-100.0); Mean Platelet Volume 10.5 fL (9.4-12.4); Monocytes # 0.8 K/mcL (0.0-1.3); Monocytes % 10.7 %; Neutrophils # 5.7 K/mcL (1.6-8.9); Platelet Count 348 K/mcL (140-400); Red Blood Count 4.35 M/mcL (3.82-4.97); Red Cell Distribution Width 20.8 % (11.5-14.5); Segmented Neutrophils % 71.8 %; White Blood Count 7.9 K/mcL (4.3-11.1)
[2019-05-21] MEDS: Furosemide 40 MG/4 ML VIAL IVP SCH (07:47)
[2019-05-21] MEDS: amLODIPine 5 MG TABLET PO SCH (07:47)
[2019-05-21] MEDS: Lisinopril 20 MG TABLET PO SCH (07:47)
[2019-05-21] MEDS: Aspirin Enteric Coated 81 MG Tablet PO SCH (07:47)
[2019-05-21] MEDS: *HR* Digoxin 0.125 MG TABLET PO SCH (07:48)
[2019-05-21] MEDS: Fenofibrate 54 MG TABLET PO SCH (07:48)
[2019-05-21] MEDS: FLUoxetine HCl 10 MG CAPSULE PO SCH ×2 (07:49→21:44)
[2019-05-21] MEDS: Ipratropium/Albuterol Neb 3 ML IH SCH ×4 (09:02→22:16)
[2019-05-21] MEDS: Furosemide 40 MG TABLET PO SCH (17:46)
[2019-05-21] MEDS: *HR* Rivaroxaban 10 MG TABLET PO SCH (17:46)
[2019-05-22] MEDS: Piperacillin/Tazobactam 3.375 GM in 0.9 % Sodium Chloride Mini Bag 100 ML IVPB SCH ×2 (02:06→10:14)
[2019-05-22] MEDS: Ipratropium/Albuterol Neb 3 ML IH SCH ×3 (03:48→15:59)
[2019-05-22] MEDS: Lisinopril 20 MG TABLET PO SCH (10:13)
[2019-05-22] MEDS: FLUoxetine HCl 10 MG CAPSULE PO SCH (10:13)
[2019-05-22] MEDS: amLODIPine 5 MG TABLET PO SCH (10:13)
[2019-05-22] MEDS: Furosemide 40 MG TABLET PO SCH (10:13)
[2019-05-22] MEDS: *HR* Digoxin 0.125 MG TABLET PO SCH (10:13)
[2019-05-22] MEDS: Fenofibrate 54 MG TABLET PO SCH (10:13)
[2019-05-22] MEDS: Aspirin Enteric Coated 81 MG Tablet PO SCH (10:14)
[2019-05-22 15:25] VITALS: BP 126/58
== END 2019-05-22 17:59 | disposition home or self-care (01) | DRG 291 ==
LOC: EMEROOARM 17:23 → 3BNU 17:23 → SUATTDRO 21:34 → 3BNU 22:31 → SUATTDRO 05-19 10:01
PROVIDERS: ADMIT Student in an Organized Health Care Education/Training Program; ATTEND Student in an Organized Health Care Education/Training Program